=== PATIENT | female | born 1985 | race Caucasian/White ===

== ENCOUNTER 2018-07-30 15:17 | Emergency (ER) | payer MEDICAID ==
[2018-07-30] MEDS ORDERED: LIDOCAINE 2% VISCOUS SOLN 20 ML UDCUP PO ONE (16:04)
[2018-07-30] MEDS ORDERED: MAG HYDROX/AL HYDROX/SIMETH SUSP 30 ML UDCUP PO PRN (16:04)
--- NOTE | 2018-07-30 16:14 | ER Document Report ---
ED GI/ - General Mode of Arrival: Ambulatory Information source: Patient TRAVEL OUTSIDE OF THE [place] IN LAST 30 DAYS: No - HPI Patient complains to provider of: Abdominal pain. No: Vaginal bleeding, Vomiting Onset: Other - 2 weeks Timing/Duration: Waxing and waning Quality of pain: Achy Pain Level: 2 Location: Epigastric Vaginal bleeding (Compared to normal period): None Sexual history: Active Associated symptoms: Nausea. denies: Constipation, Diarrhea, Dysuria, Fever, Urinary hesitancy, Urinary frequency, Vomiting Exacerbated by: Denies Relieved by: Denies Similar symptoms previously: No Recently seen / treated by doctor: No <DIANA CHAVEZ - Last Filed: 07/31/18 02:06> <RITCHIE WALLACE - Last Filed: 07/31/18 03:06> - General Chief Complaint: Abdominal Pain Stated Complaint: STOMACH PAIN Time Seen by Provider: 07/30/18 15:54 Primary Care Provider: KENYATTA SHEPPARD MD [Primary Care Provider] - Follow up as needed Notes: Patient presents complaining of a 2-week history of epigastric pain this been off and on but occasionally radiate through to her back. Patient reports nausea. Patient states that she is concerned that she may have gallbladder iss ues. Patient denies any fever vomiting diarrhea or urinary symptoms. (DIANA CHAVEZ) - Related Data Allergies/Adverse Reactions: No Known Drug Allergies Allergy (Verified 07/30/18 15:17) Past Medical History - General Information source: Patient - Social History Smoking Status: Current Every Day Smoker Frequency of alcohol use: Occasional Drug Abuse: None Occupation: call center Family History: Reviewed & Not Pertinent Patient has suicidal ideation: No Patient has homicidal ideation: No Renal/ Medical History: Denies: Hx Peritoneal Dialysis GI Medical History: Reports: Hx Gastroesophageal Reflux Disease Surgical Hx: Negative - Immunizations Hx Diphtheria, Pertussis, Tetanus Vaccination: No - contraindicated <DIANA CHAVEZ - Last Filed: 07/31/18 02:06> Review of Systems - Review of Systems Constitutional: No symptoms reported. denies: Fever EENT: No symptoms reported Cardiovascular: Heart racing, Lightheaded - with her menstrual cycle, none at this time. denies: Chest pain Respiratory: No symptoms reported. denies: Cough Gastrointestinal: Abdominal pain, Nausea. denies: Diarrhea, Vomiting Genitourinary: No symptoms reported. denies: Dysuria Female Genitourinary: No symptoms reported Musculoskeletal: Back pain - Abdominal pain will occasionally radiate through to her back Skin: No symptoms reported Hematologic/Lymphatic: No symptoms reported Neurological/Psychological: No symptoms reported <DIANA CHAVEZ - Last Filed: 07/31/18 02:06> Physical Exam - General General appearance: Appears well, Alert In distress: None - HEENT Head: Normocephalic, Atraumatic Eyes: Normal Conjunctiva: Normal Nasal: Normal Mouth/Lips: Normal Pharynx: Normal Neck: Normal, Supple. No: Lymphadenopathy - Respiratory Respiratory status: No respiratory distress Chest status: Nontender Breath sounds: Normal. No: Rales, Rhonchi, Stridor, Wheezing Chest palpation: Normal - Cardiovascular Rhythm: Regular, Tachycardia Heart sounds: S1 appreciated, S2 appreciated Murmur: No - Abdominal Inspection: Obese Distension: No distension Bowel sounds: Normal Tenderness: Tender - epigastric Organomegaly: No organomegaly - Back Back: Normal, Nontender. No: CVA tenderness - Extremities General upper extremity: Normal inspection, Normal ROM General lower extremity: Normal inspection, Normal ROM - Neurological Neuro grossly intact: Yes Cognition: Normal [place] Coma Scale Eye Opening: Spontaneous [place] Coma Scale Verbal: Oriented Xu Coma Scale Motor: Obeys Commands [place] Coma Scale Total: 15 - Psychological Associated symptoms: Normal affect, Normal mood - Skin Skin Temperature: Warm Skin Moisture: Dry Skin Color: Normal <DIANA CHAVEZ - Last Filed: 07/31/18 02:06> - Vital signs Vitals: Temp Pulse Resp BP Pulse Ox 99.7 F 132 H 16 156/98 H 100 07/30/18 15:28 07/30/18 15:28 07/30/18 15:28 07/30/18 15:28 07/30/18 15:28 Course - Laboratory Result Diagrams: 07/30/18 16:28 07/30/18 16:28 - Diagnostic Test Radiology reviewed: Reports reviewed <DIANA CHAVEZ - Last Filed: 07/31/18 02:06> - Laboratory Result Diagrams: 07/31/18 01:38 07/30/18 16:28 <RITCHIE WALLACE - Last Filed: 07/31/18 03:06> - Re-evaluation Re-evalutation: 07/30/18 17:00 Patient with low H&H. Patient states that she will have occasional rectal bleeding due to a hemorrhoid but denies any current rectal bleeding or pain symptoms attributed to this hemorrhoid. Patient states she did recently have her menstrual cycle and she does have heavy menstrual bleeding. Patient states that her most recent menstrual cycle was extremely heavy. Patient denies any other abnormal bleeding or bruising. Dr. Diana, agrees with plan to transfuse 1 unit and recommends consultation for admission. Will await ultrasound results given that patient presented with epigastric pain to rule out any other abnormal pathology at this time in addition to her anemia. 07/30/18 20:18 Consulted with on-call FOLDING MACHINE TENDER Dr. Johnson regarding need for admission given that patient is receiving transfusion for symptomatic anemia. Dr. Johnson declined stating that patient is not having active vaginal bleeding and that she can follow-up on outpatient basis with their clinic and that she can receive a transfusion here. Dr Diana commence consultation with hospitalist to see if they will except for admission. 07/30/18 21:[address] Alarcon regarding patient presentation, does not feel that patient warrants observation admission at this time. Patient's c urrent vital signs demonstrate improvement of tachycardia. 07/30/18 21:20 Patient updated on plan of care at this time. Packed red blood cells continue to transfuse. Patient's vital signs normalized at this time. Patient does complain of continued epigastric tenderness. Additional medications ordered. 07/31/18 00:01 Trans-fusion complete. Patient without any findings worrisome for a transfusion reaction at this time. 07/31/18 02:07 Report and handoff given to Ritchie SIGALA (DIANA CHAVEZ) 07/31/18 03:03 Hemoglobin is now 7, up from 6.5. She was only given one unit. Reevaluated at bedside. Patient is not currently on her menstrual cycle which she states was extremely heavy, her stool is negative for blood, she denies bleeding since starting with the transfusion, she denies any current symptoms. She is not tachycardic anymore. As result she was placed on iron, medications for suspected gastritis, and I discussed with her the importance of follow-up in cluding TUFTING MACHINE FIXER follow-up. Patient states she is going to go get control because of her persistent heavy bleeding. States she is ready to leave, requesting work note. Stable at time of discharge. I did discuss with Dr. Morton. (RITCHIE WALLACE) - Vital Signs Vital signs: Temp Pulse Resp BP Pulse Ox 99.0 F 97 18 137/84 H 98 07/30/18 20:48 07/30/18 20:48 07/31/18 03:01 07/31/18 03:01 07/31/18 03:01 - Laboratory Laboratory results interpreted by me: 07/30/18 07/30/18 07/30/18 16:28 16:28 17:08 Hgb 6.5 L Hct 23.4 L MCV 58 L MCH 16.3 L MCHC 27.9 L RDW 19.3 H Chloride 108 H Glucose 130 H Ur Leukocyte Esterase SMALL H Crossmatch 07/30/18 07/31/18 17:08 01:38 Hgb 7.0 L Hct 24.1 L MCV 62 L D MCH 18.0 L MCHC 28.9 L RDW 22.5 H Chloride Glucose Ur Leukocyte Esterase Crossmatch See Detail Discharge <DIANA CHAVEZ - Last Filed: 07/31/18 02:06> <RITCHIE WALLACE - Last Filed: 07/31/18 03:06> - Discharge Clinical Impression: Epigastric abdominal pain, hx heavy menstrual bleeding GERD (gastroesophageal reflux disease) Qualifiers: Esophagitis presence: esophagitis presence not specified Qualified Code(s): K21.9 - Gastro-esophageal reflux disease without esophagitis Anemia Qualifiers: Anemia type: unspecified type Qualified Code(s): D64.9 - Anemia, unspecified Instructions: Anemia ([facility]), Gastritis ([facility]), Reflux Disease (GERD) ([facility]) Additional Instructions: Return immediately for any new or worsening symptoms Followup with your primary care provider, call tomorrow to make a followup appointment Follow-up with a guide rail cleaner for further evaluation, call tomorrow for an appointment If you develop any chest pain, lightheadedness dizziness, feeling faint or heavy abnormal bleeding you should return for further evaluation. Take your iron supplements 2 hours before any antacid medication or 4 hours after any antacid medications to help with absorption. Prescriptions: Ferrous Fumarate [Hemocyte] 324 mg PO DAILY #30 tablet Omeprazole Magnesium [Prilosec Otc] 20 mg PO DAILY #15 tablet. Sucralfate [Carafate 1 gm Tablet] 1 gm PO ACHS #40 tablet Forms: Return to Work Referrals: KENYATTA SHEPPARD MD [Primary Care Provider] - Follow up as needed
[2018-07-30] MEDS ORDERED: NORMAL SALINE 1000 ML 1,000 ML IV ONE (16:15)
[2018-07-30 16:37] LABS: ABSOLUTE BASOPHILS # (AUTO) 0.1 10^3/uL (0.0-0.2); ABSOLUTE EOSINOPHILS # (AUTO) 0.1 10^3/uL (0.0-0.6); ABSOLUTE LYMPHOCYTES (AUTO) 1.9 10^3/uL (0.5-4.7); ABSOLUTE MONOCYTES (AUTO) 0.6 10^3/uL (0.1-1.4); ABSOLUTE NEUT (AUTO) 4.5 10^3/uL (1.7-8.2); BASOPHILS % (AUTO) 0.8 % (0-2); EOSINOPHILS % (AUTO) 1.1 % (0-6); HEMATOCRIT 23.4 % (36.0-47.0); LYMPHOCYTES % (AUTO) 26.6 % (13-45); MEAN CORPUSCULAR HEMOGLOBIN 16.3 pg (27.0-33.4); MEAN CORPUSCULAR HGB CONC 27.9 g/dL (32.0-36.0); MONOCYTES % (AUTO) 8.6 % (3-13); PLATELET COUNT 335 10^3/uL (150-450); RED BLOOD COUNT 4.01 10^6/uL (3.72-5.28); RED CELL DISTRIBUTION WIDTH 19.3 % (11.5-14.0); SEGMENTED NEUTROPHILS % (AUTO) 62.9 % (42-78); TOTAL CELLS COUNTED % (AUTO) 100 %; WHITE BLOOD COUNT 7.1 10^3/uL (4.0-10.5)
[2018-07-30 16:47] LABS: HEMOGLOBIN 6.5 g/dL (12.0-15.5); MEAN CORPUSCULAR VOLUME 58 fl (80-97)
[2018-07-30 16:56] LABS: ALANINE AMINOTRANSFERASE 20 U/L (9-52); ALBUMIN 4.4 g/dL (3.5-5.0); ALKALINE PHOSPHATASE 56 U/L (38-126); ANION GAP 9 (5-19); ASPARTATE AMINO TRANSFERASE 21 U/L (14-36); BILIRUBIN,DIRECT 0.2 mg/dL (0.0-0.4); BILIRUBIN,TOTAL 0.5 mg/dL (0.2-1.3); BLOOD UREA NITROGEN 11 mg/dL (7-20); CALCIUM 9.6 mg/dL (8.4-10.2); CARBON DIOXIDE 23 mmol/L (22-30); CHLORIDE 108 mmol/L (98-107); GLUCOSE 130 mg/dL (75-110); LIPASE 49.9 U/L (23-300); POTASSIUM 4.2 mmol/L (3.6-5.0); SODIUM 140.2 mmol/L (137-145)
[2018-07-30 17:07] LABS: INTERNATIONAL RATION (INR) 1.01; PROTHROMBIN TIME 13.8 SEC (11.4-15.4)
[2018-07-30 17:13] LABS: ANISOCYTOSIS 2+; PLATELET COMMENT ADEQUATE
[2018-07-30 17:14] LABS: POLYCHROMASIA SLIGHT
[2018-07-30] MEDS ORDERED: NORMAL SALINE 250 ML IV PRN (17:35)
[2018-07-30 18:12] LABS: APPEARANCE,URINE CLEAR; BILIRUBIN,URINE NEGATIVE (NEGATIVE); COLOR,URINE STRAW; GLUCOSE, URINE NEGATIVE (NEGATIVE); KETONES,URINE NEGATIVE (NEGATIVE); LEUKOCYTE ESTERASE,URINE SMALL (NEGATIVE); NITRITE,URINE NEGATIVE (NEGATIVE); PROTEIN,URINE NEGATIVE (NEGATIVE); URINE SPECIFIC GRAVITY 1.008; UROBILINOGEN,URINE NEGATIVE mg/dL (<2.0)
--- NOTE | 2018-07-30 19:51 | RADIOLOGY REPORT (SQ) ---
EXAM DESCRIPTION: U/S ABDOMEN LIMITED W/O DOP COMPLETED DATE/TIME: 07/30/2018 7:39 pm REASON FOR STUDY: upper abd pain COMPARISON: None. TECHNIQUE: Dynamic and static grayscale images acquired of the abdomen and recorded on PACS. Additio nal selected color Doppler and spectral images recorded. LIMITATIONS: None. FINDINGS: PANCREAS: No masses. Visualized pancreatic duct normal caliber. LIVER: No masses. Mildly echogenic. LIVER VASCULATURE: Normal directional flow of the main portal vein and hepatic veins. GALLBLADDER: No stones. Normal wall thickness. No pericholecystic fluid. ULTRASOUND-DETECTED PETIT'S SIGN: Negative. INTRAHEPATIC DUCTS AND COMMON DUCT: CBD and intrahepatic ducts normal caliber. No filling defects. INFERIOR VENA CAVA: Not imaged. AORTA: No aneurysm. RIGHT KIDNEY: Normal size, 9.2 cm. Normal echogenicity. No solid or suspicious masses. No hydronephr osis. No calcifications. PERITONEAL AND RIGHT PLEURAL SPACE: No ascites or effusions. OTHER: No other significant findings. IMPRESSION: Mild hepatic steatosis. Normal gallbladder. TECHNICAL DOCUMENTATION: JOB ID: [id number]- All Rights Reserved Reading location - IP/workstation name: [email or web address]
--- NOTE | 2018-07-30 19:53 | RADIOLOGY REPORT (SQ) ---
EXAM DESCRIPTION: U/S NON-OB PELVIS TV W/O DOP COMPLETED DATE/TIME: 07/30/2018 7:40 pm REASON FOR STUDY: heavy menses, low H/H LMP 07/11/2018 COMPARISON: None. TECHNIQUE: Dynamic and static grayscale images acquired of the pelvis via transvaginal approach and recorded on PACS. Additional selected color Doppler and spectral images recorded. LIMITATIONS: None. FINDINGS: UTERUS: Contour normal. No mass. ENDOMETRIAL STRIPE: No focal or generalized thickening. No masses. CERVIX: 2.8 cm. No nabothian cysts. RIGHT OVARY AND DOPPLER: Ovary not seen. LEFT OVARY AND DOPPLER: Ovary not seen. FREE FLUID: None noted. OTHER: No other significant finding. MEASUREMENTS: UTERUS: 10.7 x 8.6 x 7.2 cm. ENDOMETRIAL STRIPE: 8.5 mm. RIGHT OVARY: Ovary not seen. LEFT OVARY: Ovary not seen. IMPRESSION: Normal study, limited by not being able to see the ovaries. TECHNICAL DOCUMENTATION: JOB ID: [id number] [employer]- All Rights Reserved Reading location - IP/workstation name: [email or web address]
[2018-07-30] MEDS ORDERED: SUCRALFATE 1 GM TABLET PO ONE (21:39)
[2018-07-30] MEDS ORDERED: FAMOTIDINE INJ/PF 20 MG/2 ML SDV IV ONE (21:39)
[2018-07-30] MEDS ORDERED: HYDROCODONE/ACETAMINOPHEN 5-325 MG TABLET PO ONE (21:41)
[2018-07-31 02:19] LABS: ABSOLUTE BASOPHILS # (AUTO) 0.1 10^3/uL (0.0-0.2); ABSOLUTE EOSINOPHILS # (AUTO) 0.1 10^3/uL (0.0-0.6); ABSOLUTE LYMPHOCYTES (AUTO) 2.8 10^3/uL (0.5-4.7); ABSOLUTE MONOCYTES (AUTO) 0.6 10^3/uL (0.1-1.4); ABSOLUTE NEUT (AUTO) 3.7 10^3/uL (1.7-8.2); BASOPHILS % (AUTO) 1.4 % (0-2); HEMATOCRIT 24.1 % (36.0-47.0); LYMPHOCYTES % (AUTO) 38.2 % (13-45); MEAN CORPUSCULAR HGB CONC 28.9 g/dL (32.0-36.0); MONOCYTES % (AUTO) 8.5 % (3-13); PLATELET COUNT 291 10^3/uL (150-450); RED BLOOD COUNT 3.87 10^6/uL (3.72-5.28); RED CELL DISTRIBUTION WIDTH 22.5 % (11.5-14.0); SEGMENTED NEUTROPHILS % (AUTO) 50.9 % (42-78); TOTAL CELLS COUNTED % (AUTO) 100 %; WHITE BLOOD COUNT 7.3 10^3/uL (4.0-10.5)
[2018-07-31 02:22] LABS: MEAN CORPUSCULAR VOLUME 62 fl (80-97)
[2018-07-31 02:31] LABS: ANISOCYTOSIS 3+; PLATELET COMMENT ADEQUATE
[2018-07-31 02:41] LABS: OVALOCYTES 1+; POIKILOCYTOSIS 1+; POLYCHROMASIA SLIGHT
[2018-07-31 02:42] LABS: PLATELET LARGE PRESENT
[2018-07-31 03:04] VITALS: BP 137/84
[2018-07-31 10:29] LABS: PATH REVIEW PATHOLOGIST REVIEWED
--- NOTE | 2018-07-31 22:11 | EKG REPORT ---
SEVERITY:- OTHERWISE NORMAL ECG - SINUS TACHYCARDIA : Confirmed by: Fern Quesada 31-Jul-2018 22:10:28
== END 2018-07-31 03:15 | disposition home or self-care (01) ==
LOC: ER 15:17
DX: K21.9 Gastro-esophageal reflux disease without esophagitis (principal); N92.0 Excessive and frequent menstruation with regular cycle; D64.9 Anemia, unspecified; R11.0 Nausea; R10.13 Epigastric pain; R10.816 Epigastric abdominal tenderness; R00.0 Tachycardia, unspecified; F17.200 Nicotine dependence, unspecified, uncomplicated; Z87.19 Personal history of other diseases of the digestive system
CPT/HCPCS: 93005; 99284; 96361; 96374; 86900; 86901; 36415; 36430; 86850; 83690; 84443; 84703; 85025; 85610; 85730; 82272; 80053; 81001; 86920; 76705; 76830; 93010; P9016; J3490 ×3; J7030; J7050; S0028

== ENCOUNTER 2019-05-21 22:36 | Inpatient (IN) | payer SELFPAY ==
[2019-05-22] MEDS ORDERED: ACETAMINOPHEN 325 MG TABLET PO ONE (00:02)
[2019-05-22] MEDS ORDERED: ACETAMINOPHEN SOLN 325 MG/10.15 ML UDCUP PO ONE (00:06)
[2019-05-22 01:11] LABS: A TYPE INFLUENZA AG NEGATIVE (NEGATIVE); B INFLUENZA AG NEGATIVE (NEGATIVE)
--- NOTE | 2019-05-22 01:14 | RADIOLOGY REPORT (SQ) ---
EXAM DESCRIPTION: XR CHEST 2 VIEWS COMPLETED DATE/TME: 05/22/2019 00:00 CLINICAL HISTORY: 33 years, Female, fever, cough COMPARISON: None. NUMBER OF VIEWS: Two TECHNIQUE: Two views of the chest LIMITATIONS: None. FINDINGS: There are patchy bilateral airspace opacities, worse within the left lung. The heart is normal in size. There is no pneumothorax or pleural effusion. The bones are unremarkable. IMPRESSION: Multifocal pneumonia. copyright 2010 [employer]- All Rights Reserved
[2019-05-22] MEDS ORDERED: AZITHROMYCIN INJ 500 MG VIAL IV ONE (04:02)
[2019-05-22] MEDS ORDERED: CEFTRIAXONE 1 GM/D5W RTU 1 GM/50 ML RTUPB IV ONE (04:02)
--- NOTE | 2019-05-22 04:06 | ER Document Report ---
ED General - General Chief Complaint: Cough Stated Complaint: DRY COUGH Time Seen by Provider: 05/22/19 03:14 Notes: 33-year-old female presents emergency department complaining of a dry cough for the past 2 to 3 days associated with shortness of breath, tingling sensation in her chest when she takes a really deep breath and muscle aches. Denies nausea, vomiting, diarrhea. Admits to vaping. Denies any prior history of pneumonia or asthma. TRAVEL OUTSIDE OF THE [place] IN LAST 30 DAYS: No - Related Data Allergies/Adverse Reactions: No Known Drug Allergies Allergy (Verified 07/30/18 15:17) Past Medical History - General Information source: Patient - Social History Smoking Status: Current Every Day Smoker - Vapes. Frequency of alcohol use: Social Drug Abuse: None Family History: Reviewed & Not Pertinent Patient has suicidal ideation: No Patient has homicidal ideation: No Renal/ Medical History: Denies: Hx Peritoneal Dialysis GI Medical History: Reports: Hx Gastroesophageal Reflux Disease - Immunizations Hx Diphtheria, Pertussis, Tetanus Vaccination: No - contraindicated Review of Systems - Review of Systems Constitutional: See HPI, Malaise EENT: No symptoms reported Cardiovascular: See HPI Respiratory: See HPI Musculoskeletal: See HPI, Muscle pain -: Yes All other systems reviewed and negative Physical Exam - Vital signs Vitals: Temp Pulse Resp BP Pulse Ox 102.5 F H 125 H 22 H 173/96 H 94 05/21/19 22:39 05/21/19 22:39 05/21/19 22:39 05/21/19 22:39 05/21/19 22:39 Interpretation: Tachycardic, Febrile - Notes Notes: GENERAL: Alert, interacts well. No acute distress. HEAD: Normocephalic, atraumatic EYES: Pupils equal, round and reactive to light, extraocular movements intact. ENT: Oral mucosa moist, tongue midline. NECK: Full range of motion, supple, trachea midline. LUNGS: Trace crackles, no wheezing, no rales, no rhonchi, no respiratory distress when sitting, short of breath while walking. HEART: Tachycardic rate and rhythm, no murmurs, gallops, rubs. ABDOMEN: Soft, nontender, nondistended, bowel sounds present in all 4 quadrants. EXTREMITIES: Moves all 4 extremities spontaneously, no edema, radial and dorsalis pedis pulses 2/4 bilaterally. No cyanosis. NEUROLOGICAL: Alert and oriented x3, normal speech. PSYCH: Normal mood, normal affect. SKIN: Warm, Dry, normal turgor, no rashes or lesions noted. Course - Re-evaluation Re-evalutation: 05/22/19 04:05 Chest x-ray shows multifocal pneumonia and flu are negative, patient is hypoxic and tachycardic while walking. Hypoxic to 86% on room air. Discussed with Dr. Alarcon, request that we get blood work before he accepts the admission. This is reasonable as we have no blood work on this patient. Will discuss with him again when the blood work is done. 05/22/19 05:46 Labs are still pending. Patient sitting in bed at rest is ranging between 89 and 91%, patient has been started on 2 L via nasal cannula. 05/22/19 06:26 Dr. Alarcon has agreed to accept the patient to a medical floor. - Vital Signs Vital signs: Temp Pulse Resp BP Pulse Ox 97.9 F 108 H 20 143/88 H 89 L 05/22/19 05:35 05/22/19 05:35 05/22/19 05:35 05/22/19 05:35 05/22/19 05:35 - Laboratory Result Diagrams: 05/22/19 05:10 05/22/19 05:10 Laboratory results interpreted by me: 05/22/19 05/22/19 05:10 05:10 Hgb 7.4 L Hct 25.6 L MCV 61 L MCH 17.6 L MCHC 28.8 L RDW 23.7 H Sodium 136.9 L BUN 4 L Creatinine 0.50 L Glucose 173 H AST 62 H Discharge - Discharge Clinical Impression: Multifocal pneumonia, Hypoxia Condition: Fair Disposition: ADMITTED INPATIENT Admitting Provider: Dorian (Hospitalist) Unit Admitted: Medical Floor
[2019-05-22 05:27] LABS: ABSOLUTE MONOCYTES (AUTO) 0.5 10^3/uL (0.1-1.4); ABSOLUTE NEUT (AUTO) 5.6 10^3/uL (1.7-8.2); BASOPHILS % (AUTO) 0.7 % (0-2); EOSINOPHILS % (AUTO) 0.7 % (0-6); HEMATOCRIT 25.6 % (36.0-47.0); LYMPHOCYTES % (AUTO) 14.4 % (13-45); MEAN CORPUSCULAR HEMOGLOBIN 17.6 pg (27.0-33.4); MEAN CORPUSCULAR HGB CONC 28.8 g/dL (32.0-36.0); MONOCYTES % (AUTO) 7.1 % (3-13); PLATELET COUNT 293 10^3/uL (150-450); RED BLOOD COUNT 4.19 10^6/uL (3.72-5.28); RED CELL DISTRIBUTION WIDTH 23.7 % (11.5-14.0); SEGMENTED NEUTROPHILS % (AUTO) 77.1 % (42-78); TOTAL CELLS COUNTED % (AUTO) 100 %; WHITE BLOOD COUNT 7.3 10^3/uL (4.0-10.5)
[2019-05-22] MEDS ORDERED: ACETAMINOPHEN 325 MG TABLET PO PRN (05:27)
[2019-05-22] MEDS ORDERED: IPRATROPIUM/ALBUTEROL 0.5-2.5 MG/3 ML AMPUL NEB PRN (05:27)
[2019-05-22] MEDS ORDERED: GUAIFENESIN SYRP 200 MG/10 ML UDC PO PRN (05:27)
[2019-05-22] MEDS ORDERED: HYDRALAZINE HCL INJ/PF 20 MG/1 ML SDV IV PRN (05:27)
[2019-05-22 05:38] LABS: HEMOGLOBIN 7.4 g/dL (12.0-15.5); MEAN CORPUSCULAR VOLUME 61 fl (80-97)
[2019-05-22 05:48] LABS: ALBUMIN 3.5 g/dL (3.5-5.0); ALKALINE PHOSPHATASE 61 U/L (38-126); ANION GAP 11 (5-19); ASPARTATE AMINO TRANSFERASE 62 U/L (14-36); BILIRUBIN,DIRECT 0.2 mg/dL (0.0-0.4); BILIRUBIN,TOTAL 0.7 mg/dL (0.2-1.3); BLOOD UREA NITROGEN 4 mg/dL (7-20); CALCIUM 8.7 mg/dL (8.4-10.2); CARBON DIOXIDE 25 mmol/L (22-30); CHLORIDE 101 mmol/L (98-107); GLUCOSE 173 mg/dL (75-110); POTASSIUM 3.8 mmol/L (3.6-5.0); TOTAL PROTEIN 6.7 g/dL (6.3-8.2)
[2019-05-22 06:06] LABS: ANISOCYTOSIS 3+; OVALOCYTES 1+; PLATELET COMMENT ADEQUATE; POIKILOCYTOSIS 2+; POLYCHROMASIA SLIGHT; TEAR DROP CELLS 1+
[2019-05-22] MEDS ORDERED: IRON SUCROSE COMPLEX INJ/PF 100 MG/5 ML SDV IV ONE (06:17)
[2019-05-22 06:39] LABS: ABSOLUTE RETICS # 0.069 10^6/uL (0.028-0.122); IRON(TIBC) 19.6 ug/dL (37-170); RETICULOCYTE COUNT (AUTO) 1.65 % (0.66-2.85)
--- NOTE | 2019-05-22 06:55 | PDOC H&P ---
History of Present Illness Admission Date/PCP: 05/22/19 06:34 Patient complains of: Shortness of breath and cough History of Present Illness: ALICJA DAMIAN is a 33 year old female with a past medical history of iron deficiency anemia and vaping of tobacco products presents with 5 days of shortness of breath, nonproductive cough and fever to 102.1. In the emergency room she is found to have negative influenza, leukocytosis and infiltrates bilaterally on chest x-ray. She started on empiric antibiotics and referred to the hospitalist for admission. Patient denies infectious contacts or recent antibiotic use. She is also found to have significant microcytic anemia. Patient admits to chronic heavy menstrual cycle. Past Medical History Medical History: None GI Medical History: Reports: Gastroesophageal Reflux Disease Past Surgical History Past Surgical History: Reports: None Social History Information Source: Patient Smoking Status: Current Every Day Smoker - Vapes. Electronic Cigarette use?: Yes Frequency of Alcohol Use: Occasional - Advance Directive Resuscitation Status: Full Code Family History Family History: Hypertension. denies: Malignancy Parental Family History Reviewed: Yes Children Family History Reviewed: Yes Sibling(s) Family History Reviewed.: Yes Medication/Allergy Home Medications: Labetalol HCl [Normodyne 200 Mg Tablet] 400 mg PO BID 04/18/12 Pnv W-O Ca No5/Fe Fumarate/FA [-U Capsule] 1 cap PO DAILY 04/18/12 Ferrous Fumarate [Hemocyte] 324 mg PO DAILY #30 tablet 07/31/18 Omeprazole Magnesium [Prilosec Otc] 20 mg PO DAILY #15 tablet. 07/31/18 Sucralfate [Carafate 1 gm Tablet] 1 gm PO ACHS #40 tablet 07/31/18 Allergies/Adverse Reactions: No Known Drug Allergies Allergy (Verified 07/30/18 15:17) Review of Systems Constitutional: PRESENT: as per HPI, chills, fatigue, fever(s), weakness. ABSENT: headache(s), weight gain, weight loss Eyes: ABSENT: visual disturbances Ears: ABSENT: hearing changes Cardiovascular: ABSENT: chest pain, dyspnea on exertion, edema, orthropnea, palpitations Respiratory: ABSENT: cough, hemoptysis Gastrointestinal: ABSENT: abdominal pain, constipation, diarrhea, hematemesis, hematochezia, nausea, vomiting Genitourinary: ABSENT: dysuria, hematuria Musculoskeletal: ABSENT: joint swelling Integumentary: ABSENT: rash, wounds Neurological: ABSENT: abnormal gait, abnormal speech, confusion, dizziness, focal weakness, syncope Psychiatric: ABSENT: anxiety, depression, homidical ideation, suicidal ideation Endocrine: ABSENT: cold intolerance, heat intolerance, polydipsia, polyuria Hematologic/Lymphatic: ABSENT: easy bleeding, easy bruising Physical Exam Vital Signs: Temp Pulse Resp BP Pulse Ox 97.9 F 108 H 20 143/88 H 89 L 05/22/19 05:35 05/22/19 05:35 05/22/19 05:35 05/22/19 05:35 05/22/19 05:35 Intake & Output 05/20/19 05/21/19 05/22/19 11:59 11:59 11:59 Intake Total 50 Balance 50 Weight 86.9 kg General appearance: PRESENT: cooperative, mild distress Head exam: PRESENT: atraumatic, normocephalic Eye exam: PRESENT: conjunctiva pink, EOMI, PERRLA. ABSENT: scleral icterus Ear exam: PRESENT: normal external ear exam Mouth exam: PRESENT: moist, tongue midline Neck exam: ABSENT: carotid bruit, JVD, lymphadenopathy, thyromegaly Respiratory exam: PRESENT: accessory muscle use, decreased breath sounds, retraction, rhonchi, tachypnea Cardiovascular exam: PRESENT: tachycardia. ABSENT: diastolic murmur, rubs, systolic murmur Pulses: PRESENT: normal dorsalis pedis pul Vascular exam: PRESENT: normal capillary refill GI/Abdominal exam: PRESENT: normal bowel sounds, soft. ABSENT: distended, guarding, mass, organolmegaly, rebound, tenderness Rectal exam: PRESENT: deferred Extremities exam: PRESENT: full ROM. ABSENT: calf tenderness, clubbing, pedal edema Neurological exam: PRESENT: alert, awake, oriented to person, oriented to place, oriented to time, oriented to situation, CN II-XII grossly intact. ABSENT: motor sensory deficit Psychiatric exam: PRESENT: appropriate affect, normal mood. ABSENT: homicidal ideation, suicidal ideation Skin exam: PRESENT: dry, intact, warm. ABSENT: cyanosis, rash Results Laboratory Results: 05/22/19 05:10 05/22/19 05:10 05/22/19 05/22/19 05/22/19 05:10 05:10 05:10 WBC 7.3 RBC 4.19 Hgb 7.4 L Hct 25.6 L MCV 61 L MCH 17.6 L MCHC 28.8 L RDW 23.7 H Plt Count 293 Seg Neutrophils % 77.1 Retic Count (auto) Sodium 136.9 L Potassium 3.8 Chloride 101 Carbon Dioxide 25 Anion Gap 11 BUN 4 L Creatinine 0.50 L Est GFR ( Amer) > 60 Glucose 173 H Calcium 8.7 Total Bilirubin 0.7 AST 62 H Alkaline Phosphatase 61 Total Protein 6.7 Albumin 3.5 Serum HCG, Qual NEGATIVE 05/22/19 05:10 WBC RBC Hgb Hct MCV MCH MCHC RDW Plt Count Seg Neutrophils % Retic Count (auto) 1.65 Sodium Potassium Chloride Carbon Dioxide Anion Gap BUN Creatinine Est GFR ( Amer) Glucose Calcium Total Bilirubin AST Alkaline Phosphatase Total Protein Albumin Serum HCG, Qual 05/22/19 05:10 Creatine Kinase 43 Impressions: Chest X-Ray 05/22/19 00:00 IMPRESSION: Multifocal pneumonia. copyright 2010 [employer]- All Rights Reserved Assessment and Plan - Diagnosis (1) Microcytic anemia Is this a current diagnosis for this admission?: Yes Plan: Likely secondary to menorrhagia from history. Follow-up anemia labs, iron initiated empirically. (2) Hypoxia Is this a current diagnosis for this admission?: Yes Plan: Incentive spirometry and supplemental oxygen. (3) Multifocal pneumonia Is this a current diagnosis for this admission?: Yes Plan: Most likely pneumonia versus vape inhalation injury. Pneumonia care set initiated with empiric antibiotics, follow-up CBC and blood culture. - Time Time Spent with patient: 25-34 minutes - Inpatient Certification Medical Necessity: Need Close Monitoring Due to Risk of Patient Decompensation
[2019-05-22] MEDS: IPRATROPIUM/ALBUTEROL 0.5-2.5 MG/3 ML AMPUL NEB SCH ×3 (08:33→19:49)
[2019-05-22] MEDS: FLUTICASONE NASAL SPRAY 50 MCG/SPRY 120 SPRAY/16 GM NASL SCH ×2 (08:44→18:02)
[2019-05-22] MEDS: HEPARIN SOD (PORCINE) 5,000 UNIT/ML 1 ML VIAL SUBCUT SCH ×3 (08:44→21:40)
[2019-05-22 12:01] LABS: PATH REVIEW PATHOLOGIST REVIEWED
[2019-05-22] MEDS ORDERED: NORMAL SALINE 1000 ML 1,000 ML IV ONE (13:31)
[2019-05-22] MEDS: NORMAL SALINE 1000 ML 1,000 ML IV PRN ×2 (18:01→21:46)
[2019-05-22] MEDS: GUAIFENESIN SYRP 200 MG/10 ML UDC PO SCH ×2 (18:01→23:03)
[2019-05-22] MEDS ORDERED: CEFTRIAXONE 1 GM/D5W RTU 1 GM/50 ML RTUPB IV SCH (22:00)
[2019-05-22] MEDS ORDERED: AZITHROMYCIN 500 MG in DEXTROSE 5%-WATER 250 ML IV SCH (22:00)
[2019-05-23] MEDS: IPRATROPIUM/ALBUTEROL 0.5-2.5 MG/3 ML AMPUL NEB SCH ×2 (02:15→08:41)
[2019-05-23] MEDS: GUAIFENESIN SYRP 200 MG/10 ML UDC PO SCH (05:37)
[2019-05-23] MEDS: HEPARIN SOD (PORCINE) 5,000 UNIT/ML 1 ML VIAL SUBCUT SCH (05:37)
[2019-05-23 06:05] LABS: HEMATOCRIT 24.3 % (36.0-47.0); MEAN CORPUSCULAR HEMOGLOBIN 17.9 pg (27.0-33.4); MEAN CORPUSCULAR HGB CONC 29.5 g/dL (32.0-36.0); MEAN CORPUSCULAR VOLUME 61 fl (80-97); PLATELET COUNT 268 10^3/uL (150-450); RED BLOOD COUNT 4.01 10^6/uL (3.72-5.28); RED CELL DISTRIBUTION WIDTH 22.9 % (11.5-14.0); WHITE BLOOD COUNT 4.8 10^3/uL (4.0-10.5)
[2019-05-23 06:24] LABS: ANION GAP 10 (5-19); BLOOD UREA NITROGEN 3 mg/dL (7-20); CALCIUM 8.4 mg/dL (8.4-10.2); CARBON DIOXIDE 26 mmol/L (22-30); CHLORIDE 104 mmol/L (98-107); GLUCOSE 168 mg/dL (75-110); POTASSIUM 3.8 mmol/L (3.6-5.0)
[2019-05-23 07:06] LABS: HEMOGLOBIN 7.2 g/dL (12.0-15.5)
[2019-05-23 07:14] LABS: ABSOLUTE LYMPHOCYTES# (MANUAL) 0.8 10^3/uL (0.5-4.7); ABSOLUTE MONOCYTES # (MANUAL) 0.2 10^3/uL (0.1-1.4); ANISOCYTOSIS 3+; BAND NEUTROPHILS % (MANUAL) 1 % (3-5); BASOPHILS % (MANUAL) 1 % (0-2); EOSINOPHILS % (MANUAL) 1 % (0-6); HYPOCHROMASIA 2+; LYMPHOCYTES % (MANUAL) 16 % (13-45); METAMYELOCYTES % (MANUAL) 2 % (0-1); MONOCYTES % (MANUAL) 5 % (3-13); OVALOCYTES 1+; POIKILOCYTOSIS 2+; SEGMENTED NEUTROPHILS % (MAN) 74 % (42-78); TOTAL CELLS COUNTED 100
[2019-05-23 07:15] LABS: PLATELET COMMENT ADEQUATE
[2019-05-23] MEDS: FLUTICASONE NASAL SPRAY 50 MCG/SPRY 120 SPRAY/16 GM NASL SCH (09:10)
[2019-05-23] MEDS ORDERED: FERROUS SULFATE 325 MG TABLET PO SCH (10:00)
[2019-05-23 10:32] VITALS: BP 149/106
--- NOTE | 2019-05-23 11:28 | PDOC DISCHARGE SUMMARY ---
Impression - Admit/DC Date/PCP Admission Date/Primary Care Provider: 05/22/19 06:34 Discharge Date: 05/23/19 - Discharge Diagnosis (1) Community acquired bacterial pneumonia Is this a current diagnosis for this admission?: Yes (2) Iron deficiency anemia due to chronic blood loss Is this a current diagnosis for this admission?: Yes (3) Heavy menstrual bleeding Is this a current diagnosis for this admission?: Yes (4) Hypertension Is this a current diagnosis for this admission?: Yes (5) Hypoxia Is this a current diagnosis for this admission?: Yes (6) Reactive airway disease Is this a current diagnosis for this admission?: Yes - Assessment Summary: Patient was admitted for evaluation of shortness of breath and cough. Upon presentation, patient was noted to be febrile with temperature of 102F, tachycardic in the 120s and mildly hypoxic to 89% on room air. Chest x-ray revealed evidence of multifocal infiltrates suggestive of community-acquired multifocal pneumonia. Is suspected to be bacterial given patient's cough and fever and chest x-ray findings. Patient was given IV fluids and started on antibiotics. Patient received IV ceftriaxone and azithromycin and has been transitioned to oral Levaquin today to complete a 7-day course of antibiotics. Patient's hypoxia is currently resolved and she is satting mid 90s on room air. Patient does appear to have some reactive airway disease with mild wheezing and has been giving inhalers. Patient was also noted to have significant iron deficiency anemia based of iron studies and low iron levels and has been given a dose of IV iron on admission and continued on iron sulfate tablets. Patient endorses heavy menstrual. This is likely the cause of patient's iron deficiency anemia as patient has no other evidence of GI bleed or other sources of bleeding. I told patient that I would like to have a smoking tobacco packer hand evaluate the patient to see how they can help manage her abnormal uterine bleed in the meantime before she is able to follow-up with them outpatient. However patient declined being evaluated by a smoking tobacco packer hand as she wanted to sharma home and see her child. I have recommended to patient that it would be in her best medical interest to get evaluated by gynecology and receive a Depo-Provera shot which will help subdue her period until she can follow-up with them outpatient and f ailing to do so may lead to her blood count dropping to the point where she may require transfusion. Patient declines to wait and declines a Depo-Provera shot and simply requests to be given the information to follow-up with them outpatient. Have also started patient on amlodipine giving sustained blood pressures in the 150s/90s-100s. Have urged patient to ensure that she gets set up with her primary care provider and have given her information to follow-up with the [facility]. - Additional Information Resuscitation Status: Full Code Discharge Diet: Regular Discharge Activity: Activity As Tolerated Referrals: [facility] [Outside] BERHANE GALLEGOS MD [ACTIVE STAFF] - (Call to schedule appointment) Prescriptions: Ferrous Sulfate [Feosol 325 mg Tablet] 325 mg PO DAILY #30 tablet Levofloxacin [Levaquin 500 mg Tablet] 500 mg PO DAILY 5 Days #5 tablet Amlodipine Besylate [Norvasc 5 mg Tablet] 5 mg PO DAILY #30 tablet Albuterol Sulfate [Proair Respiclick] 90 mcg IH Q6HP PRN #1 inhaler PRN Reason: For Wheezing Guaifenesin [Robitussin Syrup 200 mg/10 ml Ud Cup] 200 mg PO Q6 #100 ml Home Medications: Albuterol Sulfate [Proair Respiclick] 90 mcg IH Q6HP PRN #1 inhaler 05/23/19 Amlodipine Besylate [Norvasc 5 mg Tablet] 5 mg PO DAILY #30 tablet 05/23/19 Ferrous Sulfate [Feosol 325 mg Tablet] 325 mg PO DAILY #30 tablet 05/23/19 Guaifenesin [Robitussin Syrup 200 mg/10 ml Ud Cup] 200 mg PO Q6 #100 ml 05/23/19 Levofloxacin [Levaquin 500 mg Tablet] 500 mg PO DAILY 5 Days #5 tablet 05/23/19 History of Present Illiness History of Present Illness: ALICJA DAMIAN is a 33 year old female with a past medical history of iron deficiency anemia and vaping of tobacco products presents with 5 days of shortness of breath, nonproductive cough and fever to 102.1. In the emergency room she is found to have negative influenza, leukocytosis and infiltrates bilaterally on chest x-ray. She started on empiric antibiotics and referred to the hospitalist for admission. Patient denies infectious contacts or recent antibiotic use. She is also found to have significant microcytic anemia. Patient admits to chronic heavy menstrual cycle. Physical Exam Vital Signs: Temp Pulse Resp BP Pulse Ox 98.3 F 103 H 16 149/106 H 94 05/23/19 10:31 05/23/19 10:31 05/23/19 10:31 05/23/19 10:31 05/23/19 10:31 Intake & Output 05/22/19 05/23/19 05/24/19 06:59 06:59 06:59 Intake Total 50 3168 Balance 50 3168 Weight 84.3 kg 85.4 kg General appearance: PRESENT: no acute distress Eye exam: PRESENT: EOMI Neck exam: ABSENT: JVD Respiratory exam: PRESENT: symmetrical, unlabored, wheezes - Only very mildly. ABSENT: tachypnea Cardiovascular exam: PRESENT: RRR, +S1, +S2. ABSENT: tachycardia GI/Abdominal exam: PRESENT: normal bowel sounds, soft. ABSENT: rebound, rigid, tenderness Neurological exam: PRESENT: alert, awake, oriented to person, oriented to place, oriented to time Results Laboratory Results: WBC 4.8 10^3/uL (4.0-10.5) 05/23/19 05:33 RBC 4.01 10^6/uL (3.72-5.28) 05/23/19 05:33 Hgb 7.2 g/dL (12.0-15.5) L 05/23/19 05:33 Hct 24.3 % (36.0-47.0) L 05/23/19 05:33 MCV 61 fl (80-97) L 05/23/19 05:33 MCH 17.9 pg (27.0-33.4) L 05/23/19 05:33 MCHC 29.5 g/dL (32.0-36.0) L 05/23/19 05:33 RDW 22.9 % (11.5-14.0) H 05/23/19 05:33 Plt Count 268 10^3/uL (150-450) 05/23/19 05:33 Lymph % (Auto) Not Reportable 05/23/19 05:33 Sherman % (Auto) Not Reportable 05/23/19 05:33 Eos % (Auto) Not Reportable 05/23/19 05:33 Baso % (Auto) Not Reportable 05/23/19 05:33 Reticulocyte # 0.069 10^6/uL (0.028-0.122) 05/22/19 05:10 Absolute Neuts (auto) Not Reportable 05/23/19 05:33 Absolute Lymphs (auto) Not Reportable 05/23/19 05:33 Absolute Monos (auto) Not Reportable 05/23/19 05:33 Absolute Eos (auto) Not Reportable 05/23/19 05:33 Absolute Basos (auto) Not Reportable 05/23/19 05:33 Total Counted 100 05/23/19 05:33 Seg Neutrophils % Not Reportable 05/23/19 05:33 Seg Neuts % (Manual) 74 % (42-78) 05/23/19 05:33 Band Neutrophils % 1 % (3-5) L 05/23/19 05:33 Lymphocytes % (Manual) 16 % (13-45) 05/23/19 05:33 Monocytes % (Manual) 5 % (3-13) 05/23/19 05:33 Eosinophils % (Manual) 1 % (0-6) 05/23/19 05:33 Basophils % (Manual) 1 % (0-2) 05/23/19 05:33 Metamyelocytes % 2 % (0-1) H 05/23/19 05:33 Abs Neuts (Manual) 3.7 10^3/uL (1.7-8.2) 05/23/19 05:33 Abs Lymphs (Manual) 0.8 10^3/uL (0.5-4.7) 05/23/19 05:33 Abs Monocytes (Manual) 0.2 10^3/uL (0.1-1.4) 05/23/19 05:33 Absolute Eos (Manual) 0.0 10^3/uL (0.0-0.6) 05/23/19 05:33 Abs Basophils (Manual) 0.0 10^3/uL (0.0-0.2) 05/23/19 05:33 Platelet Comment ADEQUATE 05/23/19 05:33 Polychromasia SLIGHT 05/22/19 05:10 Hypochromasia 2+ 05/23/19 05:33 Poikilocytosis 2+ 05/23/19 05:33 Anisocytosis 3+ 05/23/19 05:33 Microcytosis 3+ 05/23/19 05:33 Tear Drop Cells 1+ 05/22/19 05:10 Ovalocytes 1+ 05/23/19 05:33 Retic Count (auto) 1.65 % (0.66-2.85) 05/22/19 05:10 Sodium 139.9 mmol/L (137-145) 05/23/19 05:33 Potassium 3.8 mmol/L (3.6-5.0) 05/23/19 05:33 Chloride 104 mmol/L (98-107) 05/23/19 05:33 Carbon Dioxide 26 mmol/L (22-30) 05/23/19 05:33 Anion Gap 10 (5-19) 05/23/19 05:33 BUN 3 mg/dL (7-20) L 05/23/19 05:33 Creatinine 0.48 mg/dL (0.52-1.25) L 05/23/19 05:33 Est GFR ( Amer) > 60 (>60) 05/23/19 05:33 Est GFR (MDRD) Non-Af > 60 (>60) 05/23/19 05:33 Glucose 168 mg/dL (75-110) H 05/23/19 05:33 Calcium 8.4 mg/dL (8.4-10.2) 05/23/19 05:33 Iron 19.6 ug/dL (37-170) L 05/22/19 05:10 TIBC 309 ug/dL (250-450) 05/22/19 05:10 % Saturation 6 % 05/22/19 05:10 Ferritin 27.20 ng/mL (6.2-137.0) 05/22/19 05:10 Total Bilirubin 0.7 mg/dL (0.2-1.3) 05/22/19 05:10 Direct Bilirubin 0.2 mg/dL (0.0-0.4) 05/22/19 05:10 Neonat Total Bilirubin Not Reportable 05/22/19 05:10 Neonat Direct Bilirubin Not Reportable 05/22/19 05:10 Neonat Indirect Bili Not Reportable 05/22/19 05:10 AST 62 U/L (14-36) H 05/22/19 05:10 ALT 34 U/L (<35) 05/22/19 05:10 Alkaline Phosphatase 61 U/L (38-126) 05/22/19 05:10 Creatine Kinase 43 U/L (30-135) 05/22/19 05:10 Total Protein 6.7 g/dL (6.3-8.2) 05/22/19 05:10 Albumin 3.5 g/dL (3.5-5.0) 05/22/19 05:10 Vitamin B12 233.0 pg/mL (239-931) L 05/22/19 05:10 Folate 17.00 ng/mL (>2.76) 05/22/19 05:10 Serum HCG, Qual NEGATIVE (NEGATIVE) 05/22/19 05:10 Influenza A (Rapid) NEGATIVE (NEGATIVE) 05/22/19 00:30 Influenza B (Rapid) NEGATIVE (NEGATIVE) 05/22/19 00:30 Slides for Path Review PATHOLOGIST REVIEWED 05/22/19 05:10 Impressions: Chest X-Ray 05/22/19 00:00 IMPRESSION: Multifocal pneumonia. copyright 2010 [employer]- All Rights Reserved Plan Time Spent: Greater than 30 Minutes Stroke Is this a Stroke Patient?: No Acute Heart Failure - Is this a Heart Failure Patient?: No
== END 2019-05-23 12:07 | disposition home or self-care (01) | DRG 195 ==
LOC: ER 22:36 → EH 05-22 06:34 → 4W 05-22 07:48 → 4N 05-22 14:06
PROVIDERS: ADMIT Internal Medicine; ATTEND Internal Medicine
DX: J18.9 Pneumonia, unspecified organism (principal); D50.0 Iron deficiency anemia secondary to blood loss (chronic); I10 Essential (primary) hypertension; J45.909 Unspecified asthma, uncomplicated; F17.290 Nicotine dependence, other tobacco product, uncomplicated; N92.0 Excessive and frequent menstruation with regular cycle; K21.9 Gastro-esophageal reflux disease without esophagitis; R09.02 Hypoxemia; R00.0 Tachycardia, unspecified
CPT/HCPCS: 36415; 71046; 80048; 80053; 82550; 82607; 82728; 82746; 83540; 83550; 84703; 85025; 85045; 87040; 87804; 94667; 94668; 94799; 96365; 96367; 99284; J0456; J0696; J1644; J1756; J3490; J7030; J7060; J7620